=== PATIENT | female | born 1985 | race Caucasian/White ===

== ENCOUNTER 2017-12-16 14:42 | Emergency (ER) | payer BC, OTHER ==
[~2017-12-16] VITALS: Ht 162.6 cm; Wt 88.5 kg
[~2017-12-16 14:42] MED LIST: ACETAMINOPHEN-1 EAC1 OR
[2017-12-16] MEDS ORDERED: BCP PO (15:11)
[2017-12-16] MEDS ORDERED: MOBIC15 MG PO (15:53)
== END 2017-12-16 16:37 | disposition home or self-care (01) ==
LOC: ER 14:42
DX: S16.1XXA Strain of muscle, fascia and tendon at neck level, initial encounter (principal); Z88.1 Allergy status to other antibiotic agents; Z88.8 Allergy status to other drugs, medicaments and biological substances; V89.2XXA Person injured in unspecified motor-vehicle accident, traffic, initial encounter; Y93.89 Activity, other specified; Y92.89 Other specified places as the place of occurrence of the external cause; Y99.8 Other external cause status

== ENCOUNTER 2017-12-18 20:27 | Emergency (ER) | payer BC, OTHER ==
[~2017-12-18] VITALS: Ht 162.6 cm; Wt 86.2 kg
[~2017-12-18 20:27] MED LIST changes: +BCP PO; +MOBIC15 MG PO
[2017-12-18] MEDS ORDERED: NORFLEX100 MG PO (23:14)
[2017-12-18 23:24] VITALS: BP 123/74
== END 2017-12-18 23:37 | disposition home or self-care (01) ==
LOC: ER 20:27
DX: M54.12 Radiculopathy, cervical region (principal); Z88.2 Allergy status to sulfonamides; Z88.8 Allergy status to other drugs, medicaments and biological substances

== ENCOUNTER → 2018-09-11 | Outpatient (CLI) | payer BC, OTHER ==
[~2018-09-11] MED LIST changes: +NORFLEX100 MG PO
== END ==
LOC: ULTRA 08:21
DX: N83.292 Other ovarian cyst, left side (principal); N83.291 Other ovarian cyst, right side; N92.0 Excessive and frequent menstruation with regular cycle

== ENCOUNTER → 2019-06-11 | Outpatient (CLI) | payer BC, OTHER | END | disposition home or self-care (01) | LOC: ULTRA 09:43 | DX: N84.1 Polyp of cervix uteri (principal); Z98.890 Other specified postprocedural states; Z79.899 Other long term (current) drug therapy; Z88.2 Allergy status to sulfonamides; Z88.8 Allergy status to other drugs, medicaments and biological substances ==

== ENCOUNTER → 2020-10-21 | Outpatient (CLI) | payer BC, OTHER | LOC: LAB 09:21 | PROVIDERS: ATTEND Nurse Practitioner | DX: U07.1 COVID-19 (principal) ==